=== PATIENT | female | born 1985 | race Two or more races ===

== ENCOUNTER 2018-11-10 06:40 | Emergency (ER) | payer MEDICARE, MEDICAID ==
[~2018-11-10] VITALS: Ht 154.9 cm; Wt 80.0 kg
[~2018-11-10 06:40] MED LIST: ALPR-624 PO; ALPR1TAB2 PO; APIX2.5T PO; CINA60TA PO; DIL100C PO; FLUO20CA39 PO; MORP30TA PO; ONDA4TAB6 PO; SEVE800T8 PO
[2018-11-10 06:44] VITALS: BP 126/57
[2018-11-10] MEDS ORDERED: ONDA4TAB6 PO (07:29)
[2018-11-10] MEDS ORDERED: HYDR-4353 PO (07:29)
[2018-11-10] MEDS ORDERED: ondansetron 4mg rapidly disintigrating tab PO ONE (07:30)
[2018-11-10] MEDS ORDERED: HYDROcodone/acetaminophen 10/325mg tab PO ONE (07:30)
== END 2018-11-10 07:52 | disposition home or self-care (01) ==
LOC: ER 06:40
DX: M23.8X1 Other internal derangements of right knee (principal); M76.31 Iliotibial band syndrome, right leg; N18.6 End stage renal disease; Z99.2 Dependence on renal dialysis; Z94.0 Kidney transplant status; Z90.49 Acquired absence of other specified parts of digestive tract; Z98.890 Other specified postprocedural states; Z88.1 Allergy status to other antibiotic agents; Z79.899 Other long term (current) drug therapy
CPT/HCPCS: 29505; 73564; 99283

== ENCOUNTER 2019-01-09 15:46 | Inpatient (IN) | payer MEDICARE, MEDICAID ==
[~2019-01-09] VITALS: Ht 154.9 cm; Wt 72.7 kg
[2019-01-09 16:41] LABS: BASOPHILS # (AUTO) 0.1 X10'3 (0-0.2); BASOPHILS % (AUTO) 0.9 % (0-1); EOSINOPHILS % (AUTO) 0.5 % (0-6); HEMATOCRIT 35.9 % (35.0-45.0); HEMOGLOBIN 11.5 g/dl (12.0-16.0); LYMPHOCYTES # (AUTO) 1.1 X10'3 (1.1-4.8); LYMPHOCYTES % (AUTO) 13.4 % (21-51); MEAN CORPUSCULAR HEMOGLOBIN 28.2 PG (27.0-31.0); MEAN CORPUSCULAR HGB CONC 31.9 g/dL (33.0-36.5); MEAN CORPUSCULAR VOLUME 88.4 FL (78-98); MEAN PLATELET VOLUME 9.7 FL (7.4-10.4); MONOCYTES # (AUTO) 0.4 X10'3 (0-0.9); MONOCYTES % (AUTO) 5.5 % (2-12); NEUTROPHILS # (AUTO) 6.4 X10'3 (1.8-7.7); NEUTROPHILS % (AUTO) 79.7 % (42-75); PLATELET COUNT 190 X10'3 (140-440); RED BLOOD COUNT 4.06 X10'6 (4.20-5.60); RED CELL DISTRIBUTION WIDTH 15.6 % (11.5-14.5); WHITE BLOOD COUNT 8.1 X10'3 (4.5-11.0)
[2019-01-09 16:53] LABS: PARTIAL THROMBOPLASTIN TIME 28 SECONDS (22-32)
[2019-01-09 16:56] LABS: ALANINE AMINOTRANSFERASE 17 U/L (12-78); ALBUMIN 4.8 G/DL (3.4-5.0); ALBUMIN/GLOBULIN RATIO 1.3 (1.1-1.5); ALKALINE PHOSPHATASE 105 IU/L (46-116); ASPARTATE AMINO TRANSFERASE 15 U/L (10-37); BILIRUBIN,TOTAL 0.6 MG/DL (0.1-1.0); CHLORIDE 108 MMOL/L (99-107); POTASSIUM 4.6 MMOL/L (3.5-5.1); SODIUM 139 MMOL/L (135-145); TOTAL PROTEIN 8.6 G/DL (6.4-8.2)
[2019-01-09 17:02] LABS: TOTAL CELLS COUNTED 100
[2019-01-09 17:03] LABS: ANISOCYTOSIS 1+; PLATELET ESTIMATE NORMAL; POIKILOCYTOSIS 1+
--- NOTE | 2019-01-09 17:03 | NUR ---
BREAK NOTE:PATIENT ON BED VISITOR AT BEDSIDE.
[2019-01-09 17:09] LABS: ANION GAP 14 (8-16); BLOOD UREA NITROGEN 24 MG/DL (7-18); BUN/CREATININE RATIO 12.2 (6.6-38.0); CALCIUM 10.1 MG/DL (8.5-10.1); CREATININE 1.96 MG/DL (0.40-0.90); GLUCOSE 90 MG/DL (70-104); TOTAL CARBON DIOXIDE 16.6 MMOL/L (24-32); eGFR 29 ML/MIN
--- NOTE | 2019-01-09 17:22 | NUR ---
CT Cancelled per PA orders.
[2019-01-09 17:54] LABS: D-DIMER 2.19 MG/L FEU (0-0.50)
--- NOTE | 2019-01-09 18:24 | NUR ---
Vascular studies being performed at bedside at this time.
[2019-01-09] MEDS ORDERED: enoxaparin 100mg/ml syringe SUBCUT ONE (18:30)
[2019-01-09] MEDS ORDERED: ondansetron/PF 4mg/2ml inj IV PRN (19:15)
[2019-01-09] MEDS ORDERED: potassium Cl 20 mEq SR tablet PO PRN ×2 (19:15)
[2019-01-09] MEDS ORDERED: magnesium 4gm in 100ml NS 100 ML IV PRN (19:15)
[2019-01-09] MEDS ORDERED: potassium CL 10mEq/100ml bag 100 ML IV PRN ×2 (19:15)
[2019-01-09] MEDS ORDERED: magnesium 2GM in 50ml NS 50 ML IV PRN (19:15)
[2019-01-09] MEDS ORDERED: acetaminophen 325mg tablet PO PRN (19:15)
[2019-01-09] MEDS ORDERED: magnesium Cl slow-release 64mg tablet PO PRN (19:15)
[2019-01-09] MEDS ORDERED: PRED5TAB PO (19:46)
[2019-01-09] MEDS ORDERED: LEVE500T PO (19:46)
[2019-01-09] MEDS ORDERED: FLUOXETINE PO (19:46)
[2019-01-09] MEDS ORDERED: OMEP-50 PO (19:46)
[2019-01-09] MEDS ORDERED: SODI650T29 PO (19:48)
[2019-01-09] MEDS ORDERED: TACR1CAP28 PO (19:49)
[2019-01-09] MEDS ORDERED: MYCO500T5 PO (19:50)
[2019-01-09 20:47] VITALS: BP 118/64
[2019-01-10] VITALS: BP 101/60
[2019-01-10 06:00] VITALS: BP 99/54
[2019-01-10 06:15] LABS: ALBUMIN 3.6 G/DL (3.4-5.0); ANION GAP 12 (8-16); BLOOD UREA NITROGEN 28 MG/DL (7-18); BUN/CREATININE RATIO 13.5 (6.6-38.0); CALCIUM 9.3 MG/DL (8.5-10.1); CHLORIDE 111 MMOL/L (99-107); CREATININE 2.08 MG/DL (0.40-0.90); GLUCOSE 85 MG/DL (70-104); MAGNESIUM 1.8 MG/DL (1.5-2.4); POTASSIUM 4.6 MMOL/L (3.5-5.1); SODIUM 143 MMOL/L (135-145); TOTAL CARBON DIOXIDE 19.7 MMOL/L (24-32); eGFR 27 ML/MIN
--- NOTE | 2019-01-10 06:20 | NUR ---
Patient in room [facility]. I have received report from SID Alicea and had the opportunity to ask questions and assume patient care.
[2019-01-10 06:24] LABS: BASOPHILS # (AUTO) 0.1 X10'3 (0-0.2); BASOPHILS % (AUTO) 1.1 % (0-1); EOSINOPHILS # (AUTO) 0.1 X10'3 (0-0.9); EOSINOPHILS % (AUTO) 0.9 % (0-6); HEMATOCRIT 30.5 % (35.0-45.0); HEMOGLOBIN 9.9 g/dl (12.0-16.0); LYMPHOCYTES # (AUTO) 1.6 X10'3 (1.1-4.8); LYMPHOCYTES % (AUTO) 21.4 % (21-51); MEAN CORPUSCULAR HEMOGLOBIN 28.2 PG (27.0-31.0); MEAN CORPUSCULAR HGB CONC 32.3 g/dL (33.0-36.5); MEAN CORPUSCULAR VOLUME 87.4 FL (78-98); MEAN PLATELET VOLUME 9.8 FL (7.4-10.4); MONOCYTES # (AUTO) 0.5 X10'3 (0-0.9); MONOCYTES % (AUTO) 6.9 % (2-12); NEUTROPHILS # (AUTO) 5.3 X10'3 (1.8-7.7); NEUTROPHILS % (AUTO) 69.7 % (42-75); PLATELET COUNT 169 X10'3 (140-440); RED BLOOD COUNT 3.49 X10'6 (4.20-5.60); WHITE BLOOD COUNT 7.6 X10'3 (4.5-11.0)
[2019-01-10] MEDS ORDERED: FLUO-167 PO (06:59)
--- NOTE | 2019-01-10 06:59 | NUR ---
Problems reprioritized. Patient report given, questions answered & plan of care reviewed with Laisha LAU.
[2019-01-10 07:14] LABS: TOTAL CELLS COUNTED 100
[2019-01-10 07:15] LABS: ANISOCYTOSIS 2+; PLATELET ESTIMATE NORMAL; POIKILOCYTOSIS FEW
--- NOTE | 2019-01-10 08:23 | NUR ---
PAGER ID: [phone] MESSAGE: Dr. Ascencio, please address Med Rec for pt Anuel, rm 355A, surgical, SID Interiano [id number]
[2019-01-10] MEDS: K and/or MAG REPLACEMENT MC SCH (08:28)
[2019-01-10] MEDS ORDERED: furosemide 20 MG/2 ML vial IV ONE (09:00)
[2019-01-10] MEDS ORDERED: mycophenolate mofetil 250mg capsule PO ONE (09:50)
[2019-01-10 11:00] VITALS: BP 118/77
[2019-01-10] MEDS: tacrolimus anhydrous 1mg capsule PO SCH ×2 (11:20→19:26)
[2019-01-10] MEDS: predniSONE 5mg tablet PO SCH (11:20)
[2019-01-10] MEDS: levetiracetam 250mg tablet PO SCH ×2 (11:20→19:26)
[2019-01-10] MEDS: FLUoxetine 20mg capsule PO SCH (11:20)
[2019-01-10] MEDS: sodium bicarbonate 650mg tablet PO SCH ×2 (11:21→19:26)
--- NOTE | 2019-01-10 11:40 | NUR ---
Patient left with Nuclear Medicine staff in w/c to have V/Q scan. Patient left in stable condition.
--- NOTE | 2019-01-10 12:30 | NUR ---
Patient arrived back to the floor in w/c. Patient taken back to her room by [facility] staff. Patient is stable.
--- NOTE | 2019-01-10 12:56 | NUR ---
PAGER ID: [phone] MESSAGE: Dr. Kimble, per your request: pt Víctor Agee at 0945, Output of 400 and 1 void while off the unit. V/Q scan complete. Aquiles Interiano dairy worker-[id number]
--- NOTE | 2019-01-10 14:28 | NUR ---
PAGER ID: [phone] MESSAGE: Dr. Kimble, per your request: pt Víctor Agee at 0945, Output of 400 and 1 void while off the unit. V/Q scan complete. Aquiles Interiano record cutter-[id number]
[2019-01-10 18:00] VITALS: BP 105/63
--- NOTE | 2019-01-10 18:10 | NUR ---
Received report from SID Interiano. Patient is awake and alert on room air, in no apparent distress. Call light and items of frequent use within reach. Will continue to monitor.
--- NOTE | 2019-01-10 18:11 | NUR ---
Problems reprioritized. Patient report given, questions answered & plan of care reviewed with SID Morton.
[2019-01-10] MEDS: furosemide 20 MG/2 ML vial IV SCH (19:25)
[2019-01-10] MEDS: mycophenolate mofetil 250mg capsule PO SCH (19:26)
[2019-01-11 00:05] VITALS: BP 102/55
[2019-01-11 04:35] LABS: BASOPHILS # (AUTO) 0.1 X10'3 (0-0.2); BASOPHILS % (AUTO) 0.9 % (0-1); EOSINOPHILS # (AUTO) 0.1 X10'3 (0-0.9); EOSINOPHILS % (AUTO) 1.1 % (0-6); HEMATOCRIT 30.6 % (35.0-45.0); HEMOGLOBIN 9.9 g/dl (12.0-16.0); LYMPHOCYTES # (AUTO) 1.2 X10'3 (1.1-4.8); LYMPHOCYTES % (AUTO) 17.2 % (21-51); MEAN CORPUSCULAR HEMOGLOBIN 27.9 PG (27.0-31.0); MEAN CORPUSCULAR HGB CONC 32.3 g/dL (33.0-36.5); MEAN CORPUSCULAR VOLUME 86.5 FL (78-98); MEAN PLATELET VOLUME 9.4 FL (7.4-10.4); MONOCYTES # (AUTO) 0.5 X10'3 (0-0.9); NEUTROPHILS # (AUTO) 5.2 X10'3 (1.8-7.7); NEUTROPHILS % (AUTO) 73.8 % (42-75); PLATELET COUNT 171 X10'3 (140-440); RED BLOOD COUNT 3.54 X10'6 (4.20-5.60); RED CELL DISTRIBUTION WIDTH 15.4 % (11.5-14.5)
[2019-01-11 04:46] LABS: ALBUMIN 4.1 G/DL (3.4-5.0); ANION GAP 13 (8-16); BLOOD UREA NITROGEN 28 MG/DL (7-18); BUN/CREATININE RATIO 13.7 (6.6-38.0); CALCIUM 9.8 MG/DL (8.5-10.1); CHLORIDE 107 MMOL/L (99-107); CREATININE 2.05 MG/DL (0.40-0.90); GLUCOSE 86 MG/DL (70-104); MAGNESIUM 1.7 MG/DL (1.5-2.4); POTASSIUM 4.4 MMOL/L (3.5-5.1); SODIUM 139 MMOL/L (135-145); TOTAL CARBON DIOXIDE 19.5 MMOL/L (24-32); eGFR 28 ML/MIN
--- NOTE | 2019-01-11 06:28 | NUR ---
Problems reprioritized. Patient report given, questions answered & plan of care reviewed with SID [place].
--- NOTE | 2019-01-11 06:54 | NUR ---
Patient in room [facility]. I have received report from SID Morton and had the opportunity to ask questions and assume patient care.
[2019-01-11 07:00] VITALS: BP 104/56
[2019-01-11 07:28] VITALS: BP 104/56
[2019-01-11] MEDS ORDERED: enoxaparin 40mg/0.4ml syringe SQ SCH (08:00)
[2019-01-11] MEDS: K and/or MAG REPLACEMENT MC SCH (08:00)
[2019-01-11] MEDS ORDERED: pantoprazole 40mg Tablet.DR PO SCH (08:00)
[2019-01-11] MEDS ORDERED: FLUOXETINE PO SCH (08:00)
[2019-01-11] MEDS ORDERED: enoxaparin 30mg/0.3ml syringe SUBCUT SCH (08:00)
[2019-01-11] MEDS ORDERED: FURO40TA4 PO (09:14)
[2019-01-11] MEDS: sodium bicarbonate 650mg tablet PO SCH (09:29)
[2019-01-11] MEDS: levetiracetam 250mg tablet PO SCH (09:30)
[2019-01-11] MEDS: FLUoxetine 20mg capsule PO SCH (09:30)
[2019-01-11] MEDS: predniSONE 5mg tablet PO SCH (09:30)
[2019-01-11] MEDS: mycophenolate mofetil 250mg capsule PO SCH (09:30)
[2019-01-11] MEDS: furosemide 20 MG/2 ML vial IV SCH (09:31)
[2019-01-11] MEDS: tacrolimus anhydrous 1mg capsule PO SCH (09:31)
--- NOTE | 2019-01-11 11:39 | NUR ---
reviewed all discharge instructions,medications,and need for f/u appts. Prescriptions confirmed at [facility] dc'd from right hand,site joseph sears dc'd via w/c with all belongings
== END 2019-01-11 11:02 | disposition home or self-care (01) | DRG 292 ==
LOC: ER 15:46 → ED HOLD 19:14 → SUR 3N 21:42 → OBSVTOIN 01-11 09:30
PROVIDERS: ADMIT Internal Medicine; ATTEND Internal Medicine
PROC: CB121ZZ Planar Nuclear Medicine Imaging of Lungs and Bronchi using Technetium 99m (Tc-99m) (ICD-10-PCS; principal; 2019-01-10)
DX: I50.813 Acute on chronic right heart failure (principal); Q60.0 Renal agenesis, unilateral; Z94.0 Kidney transplant status; G40.909 Epilepsy, unspecified, not intractable, without status epilepticus; N18.3 Chronic kidney disease, stage 3 (moderate); D63.8 Anemia in other chronic diseases classified elsewhere; F32.9 Major depressive disorder, single episode, unspecified; I27.81 Cor pulmonale (chronic); Z79.899 Other long term (current) drug therapy; Z86.711 Personal history of pulmonary embolism; Z87.891 Personal history of nicotine dependence; Z90.49 Acquired absence of other specified parts of digestive tract; Z88.8 Allergy status to other drugs, medicaments and biological substances
CPT/HCPCS: 36415; 71045; 78582; 80048; 80053; 83735; 83880; 84484; 85025; 85379; 85610; 85730; 87081; 93005; 93306; 93970; 99285; A9539; A9540; G0378; J1650; J1940; J7507; J7512; J7517

== ENCOUNTER 2019-06-03 02:29 | Emergency (ER) | payer MEDICARE, MEDICAID ==
[~2019-06-03] VITALS: Ht 154.9 cm; Wt 70.5 kg
[~2019-06-03 02:29] MED LIST changes: -ALPR-624 PO; -ALPR1TAB2 PO; -APIX2.5T PO; -CINA60TA PO; -DIL100C PO; +FLUO-167 PO; -FLUO20CA39 PO; +LEVE500T PO; -MORP30TA PO; +MYCO500T5 PO; +OMEP-50 PO; -ONDA4TAB6 PO; +PRED5TAB PO; -SEVE800T8 PO; +SODI650T29 PO; +TACR1CAP24 PO
--- NOTE | 2019-06-03 03:59 | NUR ---
CHAPERONED IGLESIA TIERNEY FOR RECTAL EXAM
[2019-06-03] MEDS ORDERED: FURO-149 PO (04:06)
[2019-06-03] MEDS ORDERED: acetaminophen w/codeine (30MG) #3 tablet PO ONE (04:10)
[2019-06-03] MEDS ORDERED: LIDOcaine 5% patch TP SCH (04:10)
--- NOTE | 2019-06-03 04:15 | NUR ---
PT REFUSING URINE AND BLOOD TESTING AT THIS TIME. REQUESTS "I'M DONE I JUST WANT TO GO HOME." IGLESIA TIERNEY AWARE.
[2019-06-03] MEDS ORDERED: HYDR25SU48 RC (04:19)
[2019-06-03] MEDS ORDERED: ACET-3068 PO (04:19)
[2019-06-03 04:28] VITALS: BP 97/50
== END 2019-06-03 04:27 | disposition home or self-care (01) ==
LOC: ER 02:30
DX: M25.561 Pain in right knee (principal); F41.9 Anxiety disorder, unspecified; K64.4 Residual hemorrhoidal skin tags; N18.6 End stage renal disease; Z99.2 Dependence on renal dialysis; Z94.0 Kidney transplant status; Z86.711 Personal history of pulmonary embolism; Z90.49 Acquired absence of other specified parts of digestive tract; Z98.890 Other specified postprocedural states; Z88.1 Allergy status to other antibiotic agents; Z79.899 Other long term (current) drug therapy
CPT/HCPCS: 99284

== ENCOUNTER → 2020-03-31 | Emergency (ER) | payer MEDICARE, MEDICAID ==
[~2020-03-31] VITALS: Ht 154.9 cm; Wt 72.7 kg
[~2020-03-31] MED LIST changes: +FURO-149 PO; +oxyCODONE/APAP 10/325mg tablet PO ONE
[2020-03-31 00:48] LABS: BASOPHILS # (AUTO) 0.1 X10'3 (0-0.2); EOSINOPHILS # (AUTO) 0.1 X10'3 (0-0.9); HEMATOCRIT 31.6 % (35.0-45.0); LYMPHOCYTES # (AUTO) 1.9 X10'3 (1.1-4.8); LYMPHOCYTES % (AUTO) 27.5 % (21-51); MEAN CORPUSCULAR HEMOGLOBIN 27.4 PG (27.0-31.0); MEAN CORPUSCULAR HGB CONC 31.6 g/dL (33.0-36.5); MEAN CORPUSCULAR VOLUME 86.5 FL (78-98); MEAN PLATELET VOLUME 8.4 FL (7.4-10.4); MONOCYTES # (AUTO) 0.6 X10'3 (0-0.9); MONOCYTES % (AUTO) 9.2 % (2-12); NEUTROPHILS # (AUTO) 4.3 X10'3 (1.8-7.7); NEUTROPHILS % (AUTO) 61.3 % (42-75); PLATELET COUNT 217 X10'3 (140-440); RED BLOOD COUNT 3.66 X10'6 (4.20-5.60); RED CELL DISTRIBUTION WIDTH 14.9 % (11.5-14.5)
[2020-03-31 00:56] LABS: URINE HCG NEGATIVE (NEG)
[2020-03-31 00:58] LABS: CLARITY,URINE CLEAR (Clear); COLOR,URINE YELLOW (Yellow); GLUCOSE, URINE NEGATIVE (Neg); KETONES,URINE NEGATIVE (Neg); LEUKOCYTE ESTERASE ,URINE NEGATIVE (Neg); NITRITES, URINE NEGATIVE (Neg); OCCULT BLOOD,URINE TRACE-INTACT (Neg); PH,URINE 5.5 (4.8-8.0); PROTEIN,URINE NEGATIVE (Neg); UA COLLECTION TYPE CLN CATCH MIDSTREAM; UROBILINOGEN,URINE 0.2 E.U/dL (0.2-1.0)
[2020-03-31 00:59] LABS: ALBUMIN 4.3 G/DL (3.4-5.0); ANION GAP 14 (8-16); BLOOD UREA NITROGEN 61 MG/DL (7-18); BUN/CREATININE RATIO 18.9 (6.6-38.0); CALCIUM 8.9 MG/DL (8.5-10.1); CHLORIDE 105 MMOL/L (99-107); CREATININE 3.22 MG/DL (0.40-0.90); GLUCOSE 90 MG/DL (70-104); POTASSIUM 4.5 MMOL/L (3.5-5.1); SODIUM 144 MMOL/L (135-145); TOTAL CARBON DIOXIDE 25.5 MMOL/L (24-32); eGFR 16 ML/MIN
[2020-03-31 01:09] LABS: RBC,URINE 0-2 /HPF (0-2)
[2020-03-31 01:11] LABS: SQUAMOUS EPITHELIAL CELL,UR FEW /LPF (FEW)
[2020-03-31 01:12] LABS: BACTERIA,URINE 1+ /HPF (Neg); WBC CLUMPS,URINE FEW /HPF (NEGATIVE)
[2020-03-31 02:02] LABS: ELLIPTOCYTES 1+; PLATELET ESTIMATE NORMAL; TOTAL CELLS COUNTED 100
[2020-03-31 02:03] LABS: SCHISTOCYTES FEW
[2020-03-31 02:13] VITALS: BP 119/80
== END | disposition home or self-care (01) ==
LOC: ER
DX: R10.32 Left lower quadrant pain (principal); R82.998 Other abnormal findings in urine; N18.6 End stage renal disease; Z99.2 Dependence on renal dialysis; Z86.711 Personal history of pulmonary embolism; Z90.89 Acquired absence of other organs; Z98.890 Other specified postprocedural states; Z88.1 Allergy status to other antibiotic agents; Z88.8 Allergy status to other drugs, medicaments and biological substances; Z79.899 Other long term (current) drug therapy
CPT/HCPCS: 36415; 74176; 80048; 81001; 81025; 85007; 85025; 87088; 99285

== ENCOUNTER 2020-05-21 02:20 | Emergency (ER) | payer MEDICAID, MEDICARE ==
[~2020-05-21] VITALS: Ht 154.9 cm; Wt 72.7 kg
[~2020-05-21 02:20] MED LIST changes: -oxyCODONE/APAP 10/325mg tablet PO ONE
[2020-05-21 02:21] VITALS: BP 132/77
== END 2020-05-21 03:17 | disposition left against medical advice (07) ==
LOC: ER 02:20
DX: M25.561 Pain in right knee (principal); Z53.21 Procedure and treatment not carried out due to patient leaving prior to being seen by health care provider

== ENCOUNTER 2022-09-23 11:47 | Day surgery (SDC) | payer MEDICARE, MEDICAID ==
[2022-09-23] VITALS (7 sets, daily range): BP systolic 74–107; BP diastolic 44–62; PULSE 51–82; RESP 13–16; TEMP 97.3; O2SAT 97–99
[~2022-09-23] VITALS: Ht 154.9 cm; Wt 65.9 kg
[~2022-09-23 11:47] MED LIST changes: +CLINDAMYCIN 600mg IN NS 50ML 50 ML IV ONE; +DOCUMENT DATE & TIME OF BETA-BLOCKER PO ONE; -FURO-149 PO; -MYCO500T5 PO; -OMEP-50 PO; +OMEP20CA16 PO; -PRED5TAB PO; -SODI650T29 PO; +clindamycin 600mg/D5W 50ml 50 ML IV ONE; +famotidine 20mg tablet PO ONE; +ringers solution, lacted 1,000 ML IV SCH
[2022-09-23] MEDS ORDERED: BUPIVAcaine/PF 5 mg/ml 10ml ONE (13:25)
[2022-09-23] MEDS ORDERED: LIDOcaine 1% (10mg/ml) 2ml vial ONE (13:56)
[2022-09-23] MEDS ORDERED: fentaNYL/PF 50MCG/1 ML 2ML syringe ONE (14:11)
[2022-09-23] MEDS ORDERED: MIDAZolam 1 MG/ML 5ML VIAL ONE (14:11)
--- NOTE | 2022-09-23 14:15 | NUR ---
NOTIFIED DR MELENDEZ OF ABNORMAL LAB VALUES. NO NEW ORDERS AT THIS TIME.
--- NOTE | 2022-09-23 14:15 | NUR ---
D/T TO PATIENT BEING A DIFFICULT LAB DRAW AND PIV INSERTION WITH ASSISTANCE OF DR MELENDEZ; OK TO RUN ISTAT ON PATIENT.
[2022-09-23 14:19] LABS: ISTAT CREATININE 7.3 mg/dL (0.6-1.1); ISTAT HGB 11.9 g/dl (12.0-16.0); ISTAT IONIZED CALCIUM 0.96 mmol/L (1.03-1.32); ISTAT K 3.9 mmol/L (3.5-5.1); POC BUN/CREATININE RATIO 3.7 (6.6-38.0)
--- NOTE | 2022-09-23 14:20 | NUR ---
ASSISTANCE OF DR MELENDEZ TO INSERT PIV. TOTAL ATTEMPTS 4. PIV IN RIGHT FOOT SUCCESSFUL.
[2022-09-23] MEDS ORDERED: MIDO10TA PO (14:22)
[2022-09-23] MEDS ORDERED: LIDOcaine 0.5% (5mg/ml) 50ml vial ONE (14:27)
--- NOTE | 2022-09-23 14:40 | NUR ---
Received from OR via BED, accompanied by Anesthesiologist and report given by Anesthesiologist. PATIENT WAKING UP, NO S/S OF PAIN, V/S WNL, SCD ON, 22G TO RLE, RIGHT WRIST DRESSING CDI W/ SLING. ICE AND ELEVATED RUE.
[2022-09-23] MEDS ORDERED: ringers solution, lacted 1,000 ML IV SCH (14:45)
[2022-09-23] MEDS ORDERED: morphine 4 MG/ML inj SYRINge IV PRN (14:45)
[2022-09-23] MEDS ORDERED: ondansetron/PF 4mg/2ml inj IV PRN (14:45)
[2022-09-23] MEDS ORDERED: morphine 2 MG/ML inj. syringe IV PRN (14:45)
[2022-09-23] MEDS ORDERED: hydrALAZINE 20mg/ml inj. IV PRN (14:45)
--- NOTE | 2022-09-23 15:30 | NUR ---
PATIENT A&OX4, DENIES PAIN, V/S WNL, SCD OFF, 22G TO RLE D/C, RIGHT WRIST DRESSING CDI W/ SLING. ICE AND ELEVATED RUE. I HAVE REVIEWED D/C INSTRUCTIONS WITH PATIENT INSTRUCTIONS WITH PATIENT AND THEY HAVE VERBALIZED UNDERSTANDING. PATIENT D/C HOME WITH ALL BELONGINGS AND FAMILY TRANSPORTED PATIENT HOME
== END 2022-09-23 15:30 | disposition home or self-care (01) ==
LOC: PAS 11:47
PROVIDERS: ATTEND Orthopaedic Surgery Hand Surgery
DX: G56.01 Carpal tunnel syndrome, right upper limb (principal); N18.6 End stage renal disease; Z87.891 Personal history of nicotine dependence; Z94.0 Kidney transplant status; Z98.890 Other specified postprocedural states; Z86.711 Personal history of pulmonary embolism; Z99.2 Dependence on renal dialysis; Z88.8 Allergy status to other drugs, medicaments and biological substances; Z79.899 Other long term (current) drug therapy; Z72.89 Other problems related to lifestyle
CPT/HCPCS: 29848; 80047; 82948; J2250; J3010; J3490; J7030; J7040; J7120; Z7506; Z7512; A4215; A7000

== ENCOUNTER 2022-11-25 12:29 | Outpatient (CLI) | payer MEDICARE, MEDICAID ==
[~2022-11-25] VITALS: Ht 154.9 cm; Wt 65.8 kg
[~2022-11-25 12:29] MED LIST changes: -CLINDAMYCIN 600mg IN NS 50ML 50 ML IV ONE; -DOCUMENT DATE & TIME OF BETA-BLOCKER PO ONE; +MIDO10TA PO; -clindamycin 600mg/D5W 50ml 50 ML IV ONE; -famotidine 20mg tablet PO ONE; -ringers solution, lacted 1,000 ML IV SCH
[2022-11-25 13:41] LABS: BASOPHILS # (AUTO) 0.1 X10'3 (0-0.2); BASOPHILS % (AUTO) 0.5 % (0-1); EOSINOPHILS # (AUTO) 3.5 X10'3 (0-0.9); EOSINOPHILS % (AUTO) 27.9 % (0-6); LYMPHOCYTES # (AUTO) 2.7 X10'3 (1.1-4.8); LYMPHOCYTES % (AUTO) 21.5 % (21-51); MEAN CORPUSCULAR HEMOGLOBIN 31.3 PG (27.0-31.0); MEAN CORPUSCULAR HGB CONC 32.8 g/dL (33.0-36.5); MEAN CORPUSCULAR VOLUME 95.4 FL (78-98); MEAN PLATELET VOLUME 8.3 FL (7.4-10.4); MONOCYTES # (AUTO) 0.8 X10'3 (0-0.9); MONOCYTES % (AUTO) 6.1 % (2-12); NEUTROPHILS # (AUTO) 5.5 X10'3 (1.8-7.7); PRE OP HEMATOCRIT 35.5 % (35.0-45.0); PRE OP HEMOGLOBIN 11.7 g/dL (12.0-16.0); PRE OP PLATELET COUNT 181 X10'3 (140-440); PRE OP WHITE BLOOD COUNT 12.5 10'3 (4.8-10.8); RED BLOOD COUNT 3.73 X10'6 (4.20-5.60)
[2022-11-25 13:53] LABS: ALBUMIN 3.5 G/DL (3.4-5.0); ALBUMIN/GLOBULIN RATIO 0.7 (1.1-1.5); ALKALINE PHOSPHATASE 105 IU/L (46-116); BLOOD UREA NITROGEN 47 MG/DL (7-18); BUN/CREATININE RATIO 5.8 (10.0-20.0); CALCIUM 8.6 MG/DL (8.5-10.1); CHLORIDE 97 MMOL/L (99-107); CREATININE 8.17 MG/DL (0.40-0.90); PRE OP ALT 29 U/L (30-65); PRE OP ANION GAP 11 (8-16); PRE OP AST 56 U/L (10-37); PRE OP BILIRUB, TOTAL 0.7 MG/DL (0.0-1.0); PRE OP GLUCOSE 82 MG/DL (70-104); PRE OP POTASSIUM 3.9 MMOL/L (3.4-5.1); PRE OP SODIUM 137 MMOL/L (135-145); TOTAL CARBON DIOXIDE 29.2 MMOL/L (24-32); TOTAL PROTEIN 8.3 G/DL (6.4-8.2); eGFR 5 ML/MIN
[2022-11-25 13:54] LABS: HCG SERUM QL NEGATIVE
[2022-11-25 14:06] LABS: TOTAL CELLS COUNTED 100
[2022-11-25 14:07] LABS: ANISOCYTOSIS 1+; PLATELET ESTIMATE NORMAL
[2022-12-02] MEDS ORDERED: famotidine 20mg tablet PO ONE (05:30)
[2022-12-02] MEDS ORDERED: normal saline 1000ml 1,000 ML IV SCH (05:30)
[2022-12-02] MEDS ORDERED: clindamycin-Cleocin 900mg/D5W 50 ML IV ONE (05:30)
[2022-12-02] MEDS ORDERED: BUPIVAcaine/PF 2.5mg/ml (0.25%) 10ml vial ONE (06:35)
== END 2022-11-25 23:59 | disposition home or self-care (01) ==
LOC: LAB 12:29 → EDSTATUS 12-02 09:15
PROVIDERS: ATTEND Orthopaedic Surgery Hand Surgery
DX: Z01.818 Encounter for other preprocedural examination (principal); G56.03 Carpal tunnel syndrome, bilateral upper limbs; R00.1 Bradycardia, unspecified
CPT/HCPCS: 36415; 80053; 84703; 85007; 85025; 93005; J3490; J7030; J7120

== ENCOUNTER 2023-09-08 07:46 | Day surgery (SDC) | payer MEDICARE, MEDICAID ==
[2023-09-01 09:31] LABS: BASOPHILS % (AUTO) 0.6 % (0-1); EOSINOPHILS # (AUTO) 0.8 X10'3 (0-0.9); LYMPHOCYTES # (AUTO) 2.2 X10'3 (1.1-4.8); LYMPHOCYTES % (AUTO) 27.6 % (21-51); MEAN CORPUSCULAR HEMOGLOBIN 30.8 PG (27.0-31.0); MEAN CORPUSCULAR HGB CONC 32.6 g/dL (33.0-36.5); MEAN CORPUSCULAR VOLUME 94.4 FL (78-98); MEAN PLATELET VOLUME 8.1 FL (7.4-10.4); MONOCYTES # (AUTO) 0.6 X10'3 (0-0.9); MONOCYTES % (AUTO) 7.9 % (2-12); NEUTROPHILS # (AUTO) 4.4 X10'3 (1.8-7.7); NEUTROPHILS % (AUTO) 53.9 % (42-75); PRE OP HEMATOCRIT 38.3 % (35.0-45.0); PRE OP HEMOGLOBIN 12.5 g/dL (12.0-16.0); PRE OP PLATELET COUNT 203 X10'3 (140-440); PRE OP WHITE BLOOD COUNT 8.1 10'3 (4.8-10.8); RED BLOOD COUNT 4.06 X10'6 (4.20-5.60); RED CELL DISTRIBUTION WIDTH 14.8 % (11.5-14.5)
[2023-09-01 09:59] LABS: ALBUMIN 4.1 G/DL (3.4-5.0); ALBUMIN/GLOBULIN RATIO 0.7 (1.1-1.5); ALKALINE PHOSPHATASE 208 IU/L (46-116); BLOOD UREA NITROGEN 76 MG/DL (7-18); BUN/CREATININE RATIO 10.2 (10.0-20.0); CALCIUM 9.3 MG/DL (8.5-10.1); CHLORIDE 98 MMOL/L (99-107); CREATININE 7.46 MG/DL (0.40-0.90); PRE OP ANION GAP 16 (8-16); PRE OP AST 79 U/L (10-37); PRE OP BILIRUB, TOTAL 1.8 MG/DL (0.0-1.0); PRE OP GLUCOSE 90 MG/DL (70-104); PRE OP POTASSIUM 4.7 MMOL/L (3.4-5.1); PRE OP SODIUM 137 MMOL/L (135-145); TOTAL CARBON DIOXIDE 22.9 MMOL/L (24-32); TOTAL PROTEIN 9.7 G/DL (6.4-8.2); eGFR 6 ML/MIN
[2023-09-01 10:10] LABS: PRE OP ALT 110 U/L (30-65)
[~2023-09-08] VITALS: Ht 154.9 cm; Wt 61.4 kg
[2023-09-08] VITALS (9 sets, daily range): BP systolic 93–102; BP diastolic 55–69; PULSE 64–76; RESP 13–18; TEMP 97.8; O2SAT 95–100
[2023-09-08] MEDS: clindamycin 600mg/D5W 50ml 50 ML IV ONE (05:30)
[~2023-09-08 07:46] MED LIST changes: +MEDR10TA10 PO; -OMEP20CA16 PO; +PHO667C PO; -TACR1CAP24 PO
[2023-09-08] MEDS: famotidine 20mg tablet PO ONE (09:35)
[2023-09-08] MEDS: normal saline 500ml IV soln 500 ML IV SCH (09:36)
[2023-09-08] MEDS ORDERED: BUPIVAcaine/PF 2.5mg/ml (0.25%) 10ml vial ONE (10:58)
[2023-09-08] MEDS ORDERED: propofol inj 20 ML IV ONE ×2 (11:00)
[2023-09-08] MEDS ORDERED: fentaNYL/PF 50MCG/1 ML 2ML syringe ONE (11:05)
[2023-09-08] MEDS ORDERED: HYDROmorphone/PF 0.2 MG/ML SYRINGE IV PRN ×2 (12:25)
[2023-09-08] MEDS ORDERED: ondansetron/PF 4mg/2ml inj IV PRN (12:25)
[2023-09-08] MEDS: BUPIVAcaine/PF 2.5mg/ml (0.25%) 10ml vial ONE (13:57)
[2023-09-08] MEDS: LIDOcaine 2% (20mg/ml) 5ml vial ONE (13:58)
== END 2023-09-08 12:15 | disposition home or self-care (01) ==
LOC: PAS 07:46
PROVIDERS: ATTEND Orthopaedic Surgery Hand Surgery
DX: G56.02 Carpal tunnel syndrome, left upper limb (principal); N18.6 End stage renal disease; Z87.891 Personal history of nicotine dependence; Z79.890 Hormone replacement therapy; Z79.899 Other long term (current) drug therapy; Z90.49 Acquired absence of other specified parts of digestive tract; Z88.8 Allergy status to other drugs, medicaments and biological substances
CPT/HCPCS: 29848; 36415; 80053; 82948; 85025; A4215; A6449; A7000; J2001; J2704; J3010; J3490; J7030; J7040; J7120; Z7506; Z7512; Z7610